=== PATIENT | male | born 1935 | race Caucasian/White ===

== ENCOUNTER 2019-02-16 22:01 | Inpatient (IN) ==
[2019-02-17] MEDS ORDERED: CLINDAMYCIN INJ 600 MG in PREMIX 1 EACH IV STA (01:40)
[2019-02-17 02:00] LABS: Basophils # 0.1 10*3/uL (0.0-0.2); Basophils % 0.5 % (0.0-0.8); Hematocrit 44.3 VOL% (42.0-52.0); Immature Granulocytes % 0.5 %; Immature Granulocytes Absolute 0.06 #; Lymphocytes % 15.6 % (21.2-54.2); Mean Corpuscular HGB Conc 31.6 GM/DL (32-36); Mean Corpuscular Volume 92.9 FL (87-102); Mean Platelet Volume 10.7 FL (9.6-12.0); Monocytes % 10.5 % (1.7-12.7); Neutrophils % 72.9 % (38.7-73.9); Platelet Count 191 T/CUMM (130-400); Red Blood Count 4.77 MC/CUMM (3.8-5.5); Red Cell Distribution Width 12.9 % (9.3-17.3); White Blood Count 12.8 T/CUMM (4-12)
[2019-02-17 02:19] LABS: Albumin 3.6 G/DL (3.4-5.0); Bilirubin,Total 0.4 MG/DL (0.2-1.0); Calcium 8.8 MG/DL (8.5-10.1); Osmolality,Calculated 285.1 MOS/KG (273-304); Total Protein 7.4 G/DL (6.4-8.3)
[2019-02-17] MEDS ORDERED: VANCOMYCIN INJ 1,000 MG in SODIUM CHLORIDE 0.9% 250 ML IV STA (03:51)
[2019-02-17] MEDS ORDERED: ONDANSETRON 4 MG/2 ML VIAL IV PRN (04:16)
[2019-02-17] MEDS ORDERED: TERBINAFINE 250 MG TABLET PO SCH (04:30)
[2019-02-17] MEDS: SODIUM CHLORIDE 0.9% 1,000 ML IV SCH ×2 (06:32→18:28)
[2019-02-17] MEDS: MORPHINE 4 MG/1 ML VIAL IV PRN ×2 (06:38→17:11)
[2019-02-17] MEDS: LEVOTHYROXINE 75 MCG TABLET PO SCH (08:31)
[2019-02-17] MEDS ORDERED: guaiFENesin/DM ER 600-30 MG TABLET PO PRN (09:22)
[2019-02-17] MEDS: FAMOTIDINE 20 MG TABLET PO SCH (09:36)
[2019-02-17] MEDS: ASPIRIN EC 81 MG TABLET PO SCH (09:36)
[2019-02-17] MEDS: CARBIDOPA/LEVODOPA 25-100 MG TABLET PO SCH ×4 (09:37→20:43)
[2019-02-17] MEDS: MONTELUKAST 10 MG TABLET PO SCH (09:37)
[2019-02-17] MEDS: ENTACAPONE 200 MG TABLET PO SCH ×3 (13:28→20:43)
[2019-02-17] MEDS: VANCOMYCIN INJ 1,250 MG in SODIUM CHLORIDE 0.9% 250 ML IV SCH (13:29)
[2019-02-18] MEDS: VANCOMYCIN INJ 1,250 MG in SODIUM CHLORIDE 0.9% 250 ML IV SCH ×2 (02:27→13:32)
[2019-02-18 05:16] LABS: Basophils # 0.1 10*3/uL (0.0-0.2); Basophils % 0.6 % (0.0-0.8); Hemoglobin 13.1 GM/DL (14.0-18.0); Immature Granulocytes % 0.4 %; Immature Granulocytes Absolute 0.04 #; Lymphocytes # 2.2 10*3/uL (1.4-4.0); Lymphocytes % 19.3 % (21.2-54.2); Mean Corpuscular HGB Conc 32.8 GM/DL (32-36); Mean Corpuscular Volume 91.5 FL (87-102); Monocytes % 9.5 % (1.7-12.7); Neutrophils % 70.2 % (38.7-73.9); Platelet Count 154 T/CUMM (130-400); Red Blood Count 4.37 MC/CUMM (3.8-5.5); Red Cell Distribution Width 12.6 % (9.3-17.3); White Blood Count 11.2 T/CUMM (4-12)
[2019-02-18] MEDS: SODIUM CHLORIDE 0.9% 1,000 ML IV SCH ×2 (05:27→12:31)
[2019-02-18 05:32] LABS: Calcium 8.2 MG/DL (8.5-10.1); Osmolality,Calculated 283.1 MOS/KG (273-304)
[2019-02-18] MEDS: LEVOTHYROXINE 75 MCG TABLET PO SCH (05:53)
[2019-02-18] MEDS: amLODIPine 5 MG TABLET PO SCH (08:00)
[2019-02-18] MEDS ORDERED: oxyCODONE/ACETAMINOPHEN 5-325 MG TABLET PO PRN (09:10)
[2019-02-18] MEDS ORDERED: MAGNESIUM HYDROXIDE SUSP 30 ML UDCUP PO PRN (09:10)
[2019-02-18] MEDS ORDERED: PROPOFOL 200 MG/20 ML VIAL IV ONE (09:19)
[2019-02-18] MEDS ORDERED: ONDANSETRON 4 MG/2 ML VIAL ONE ×2 (09:20→09:38)
[2019-02-18] MEDS ORDERED: fentaNYL 100 MCG/2 ML VIAL ONE (09:20)
[2019-02-18] MEDS ORDERED: SEVOFLURANE 1 UNIT/15 MINUTE INH ONE (09:20)
[2019-02-18] MEDS ORDERED: ONDANSETRON 4 MG/2 ML VIAL IV PRN (09:35)
[2019-02-18] MEDS ORDERED: HYDROmorphone 2 MG/1 ML VIAL ONE (09:38)
[2019-02-18] MEDS: HYDROmorphone 2 MG/1 ML VIAL IV PRN ×2 (09:43→09:54)
[2019-02-18] MEDS: CARBIDOPA/LEVODOPA 25-100 MG TABLET PO SCH ×4 (10:24→20:35)
[2019-02-18] MEDS: ENTACAPONE 200 MG TABLET PO SCH ×4 (10:24→20:35)
[2019-02-18] MEDS: ASPIRIN EC 81 MG TABLET PO SCH (10:24)
[2019-02-18] MEDS: MONTELUKAST 10 MG TABLET PO SCH (10:24)
[2019-02-18] MEDS: FAMOTIDINE 20 MG TABLET PO SCH (10:24)
[2019-02-18 16:40] LABS: HIV Antigen/Antibody Result Nonreactive (Nonreactive); Hepatitis B Surface Ag Quant < 0.10 Index; Hepatitis B Surface Ag Result Negative (Negative); Hepatitis C Virus Ab Quant < 0.02 Index; Hepatitis C Virus Ab Result Negative (Negative)
[2019-02-18] MEDS: oxyCODONE/ACETAMINOPHEN 5-325 MG TABLET PO PRN (20:34)
[2019-02-19] MEDS: VANCOMYCIN INJ 1,250 MG in SODIUM CHLORIDE 0.9% 250 ML IV SCH ×2 (02:27→13:26)
[2019-02-19] MEDS: LEVOTHYROXINE 75 MCG TABLET PO SCH (06:04)
[2019-02-19] MEDS: oxyCODONE/ACETAMINOPHEN 5-325 MG TABLET PO PRN ×2 (06:04→18:10)
[2019-02-19] MEDS: SODIUM CHLORIDE 0.9% 1,000 ML IV SCH ×2 (06:05→11:04)
[2019-02-19] MEDS: CARBIDOPA/LEVODOPA 25-100 MG TABLET PO SCH ×4 (09:16→21:54)
[2019-02-19] MEDS: ASPIRIN EC 81 MG TABLET PO SCH (09:16)
[2019-02-19] MEDS: FAMOTIDINE 20 MG TABLET PO SCH (09:16)
[2019-02-19] MEDS: MONTELUKAST 10 MG TABLET PO SCH (09:16)
[2019-02-19] MEDS: ENTACAPONE 200 MG TABLET PO SCH ×4 (09:17→21:53)
[2019-02-19] MEDS: amLODIPine 5 MG TABLET PO SCH (09:17)
[2019-02-19] MEDS: MORPHINE 4 MG/1 ML VIAL IV PRN (09:50)
[2019-02-19] MEDS: DOXYCYCLINE HYCLATE 100 MG CAPSULE PO SCH (21:53)
[2019-02-20] MEDS: VANCOMYCIN INJ 1,250 MG in SODIUM CHLORIDE 0.9% 250 ML IV SCH ×2 (01:40→14:55)
[2019-02-20] MEDS: oxyCODONE/ACETAMINOPHEN 5-325 MG TABLET PO PRN (05:31)
[2019-02-20] MEDS: LEVOTHYROXINE 75 MCG TABLET PO SCH (07:03)
[2019-02-20] MEDS: FAMOTIDINE 20 MG TABLET PO SCH (08:58)
[2019-02-20] MEDS: MONTELUKAST 10 MG TABLET PO SCH (08:58)
[2019-02-20] MEDS: ENTACAPONE 200 MG TABLET PO SCH ×4 (08:58→22:17)
[2019-02-20] MEDS: ASPIRIN EC 81 MG TABLET PO SCH (08:58)
[2019-02-20] MEDS: CARBIDOPA/LEVODOPA 25-100 MG TABLET PO SCH ×4 (08:58→22:16)
[2019-02-20] MEDS: amLODIPine 5 MG TABLET PO SCH (08:58)
[2019-02-20] MEDS: SODIUM CHLORIDE 0.9% 1,000 ML IV SCH ×3 (08:59→22:23)
[2019-02-20] MEDS: DOXYCYCLINE HYCLATE 100 MG CAPSULE PO SCH ×2 (08:59→22:16)
[2019-02-20] MEDS: MORPHINE 4 MG/1 ML VIAL IV PRN (17:28)
[2019-02-21] MEDS: SODIUM CHLORIDE 0.9% 1,000 ML IV SCH ×2 (01:01→09:30)
[2019-02-21] MEDS: VANCOMYCIN INJ 1,250 MG in SODIUM CHLORIDE 0.9% 250 ML IV SCH (01:03)
[2019-02-21] MEDS: LEVOTHYROXINE 75 MCG TABLET PO SCH (06:50)
[2019-02-21] MEDS: oxyCODONE/ACETAMINOPHEN 5-325 MG TABLET PO PRN (06:50)
[2019-02-21] MEDS: MONTELUKAST 10 MG TABLET PO SCH (09:27)
[2019-02-21] MEDS: ASPIRIN EC 81 MG TABLET PO SCH (09:28)
[2019-02-21] MEDS: FAMOTIDINE 20 MG TABLET PO SCH (09:28)
[2019-02-21] MEDS: ENTACAPONE 200 MG TABLET PO SCH ×2 (09:28→13:47)
[2019-02-21] MEDS: CARBIDOPA/LEVODOPA 25-100 MG TABLET PO SCH ×2 (09:28→13:47)
[2019-02-21] MEDS: DOXYCYCLINE HYCLATE 100 MG CAPSULE PO SCH (09:28)
[2019-02-21] MEDS: amLODIPine 5 MG TABLET PO SCH (09:28)
[2019-02-21 10:14] LABS: Calcium 8.4 MG/DL (8.5-10.1)
[2019-02-21 11:20] VITALS: BP 125/54
== END 2019-02-21 13:20 | disposition home or self-care (01) | DRG 580 ==
LOC: N.ED 22:01 → N.EDINP 02-17 04:16 → SUATTDRO 02-17 04:16 → N.3E 02-17 04:28
PROVIDERS: ADMIT Family Medicine; ATTEND Hospitalist

== ENCOUNTER 2019-09-30 06:00 | Observation (INO) ==
[2019-09-30 06:46] LABS: Basophils # 0.1 10*3/uL (0.0-0.2); Basophils % 0.8 % (0.0-0.8); Eosinophils % 0.1 % (0.00-10.9); Hematocrit 45.8 VOL% (42.0-52.0); Hemoglobin 14.7 GM/DL (14.0-18.0); Immature Granulocytes % 0.2 %; Immature Granulocytes Absolute 0.02 #; Lymphocytes # 1.9 10*3/uL (1.4-4.0); Lymphocytes % 18.5 % (21.2-54.2); Mean Corpuscular HGB Conc 32.1 GM/DL (32-36); Mean Corpuscular Volume 93.3 FL (87-102); Mean Platelet Volume 10.9 FL (9.6-12.0); Monocytes % 9.9 % (1.7-12.7); Neutrophils % 70.5 % (38.7-73.9); Platelet Count 181 T/CUMM (130-400); Red Blood Count 4.91 MC/CUMM (3.8-5.5); Red Cell Distribution Width 12.8 % (9.3-17.3); White Blood Count 10.1 T/CUMM (4-12)
[2019-09-30 07:04] LABS: Calcium 9.1 MG/DL (8.5-10.1); Osmolality,Calculated 279.5 MOS/KG (273-304)
[2019-09-30] MEDS ORDERED: HYDROmorphone 2 MG/1 ML VIAL IV STA (07:16)
[2019-09-30] MEDS ORDERED: ONDANSETRON 4 MG/2 ML VIAL IV STA (07:16)
[2019-09-30] MEDS ORDERED: VANCOMYCIN INJ 1,000 MG in SODIUM CHLORIDE 0.9% 250 ML IV STA (07:16)
[2019-09-30] MEDS ORDERED: ONDANSETRON 4 MG/2 ML VIAL IV PRN (08:17)
[2019-09-30] MEDS ORDERED: DEXTROSE 50% 25 GM/50 ML VIAL IV PRN (08:17)
[2019-09-30] MEDS ORDERED: ACETAMINOPHEN 325 MG TABLET PO PRN (08:17)
[2019-09-30] MEDS ORDERED: GLUCAGON 1 MG VIAL IM PRN (08:17)
[2019-09-30] MEDS: VANCOMYCIN INJ 1,250 MG in SODIUM CHLORIDE 0.9% 250 ML IV SCH (20:50)
[2019-10-01 05:37] LABS: Basophils # 0.1 10*3/uL (0.0-0.2); Eosinophils % 0.1 % (0.00-10.9); Hematocrit 43.2 VOL% (42.0-52.0); Hemoglobin 14.4 GM/DL (14.0-18.0); Immature Granulocytes % 0.1 %; Immature Granulocytes Absolute 0.01 #; Lymphocytes # 2.1 10*3/uL (1.4-4.0); Lymphocytes % 22.4 % (21.2-54.2); Mean Corpuscular HGB Conc 33.3 GM/DL (32-36); Mean Corpuscular Volume 91.3 FL (87-102); Mean Platelet Volume 11.6 FL (9.6-12.0); Monocytes % 9.5 % (1.7-12.7); Neutrophils % 66.9 % (38.7-73.9); Platelet Count 166 T/CUMM (130-400); Red Blood Count 4.73 MC/CUMM (3.8-5.5); Red Cell Distribution Width 12.7 % (9.3-17.3); White Blood Count 9.4 T/CUMM (4-12)
[2019-10-01 05:52] LABS: Calcium 8.3 MG/DL (8.5-10.1); Osmolality,Calculated 278.5 MOS/KG (273-304)
[2019-10-01] MEDS: VANCOMYCIN INJ 1,250 MG in SODIUM CHLORIDE 0.9% 250 ML IV SCH (13:50)
[2019-10-01] MEDS ORDERED: SODIUM CHLORIDE 0.65% NASAL SPRAY 45 ML BOTTLE BOTH NARES PRN (16:59)
[2019-10-02 05:01] LABS: Basophils # 0.1 10*3/uL (0.0-0.2); Basophils % 0.8 % (0.0-0.8); Hematocrit 43.3 VOL% (42.0-52.0); Hemoglobin 14.1 GM/DL (14.0-18.0); Immature Granulocytes % 0.3 %; Immature Granulocytes Absolute 0.02 #; Lymphocytes # 2.1 10*3/uL (1.4-4.0); Lymphocytes % 26.4 % (21.2-54.2); Mean Corpuscular HGB Conc 32.6 GM/DL (32-36); Mean Corpuscular Volume 92.3 FL (87-102); Mean Platelet Volume 11.1 FL (9.6-12.0); Monocytes % 8.9 % (1.7-12.7); Neutrophils % 63.6 % (38.7-73.9); Platelet Count 168 T/CUMM (130-400); Red Blood Count 4.69 MC/CUMM (3.8-5.5); Red Cell Distribution Width 12.6 % (9.3-17.3); White Blood Count 7.9 T/CUMM (4-12)
[2019-10-02 05:23] LABS: Calcium 8.3 MG/DL (8.5-10.1); Osmolality,Calculated 281.4 MOS/KG (273-304)
[2019-10-02] MEDS: VANCOMYCIN INJ 1,250 MG in SODIUM CHLORIDE 0.9% 250 ML IV SCH (09:10)
[2019-10-02] MEDS ORDERED: FAMOTIDINE 20 MG/2 ML VIAL IV ONE (09:48)
[2019-10-02] MEDS ORDERED: LACTATED RINGERS 1,000 ML IV SCH (10:00)
[2019-10-02] MEDS ORDERED: propofoL 200 MG/20 ML VIAL IV ONE (13:01)
[2019-10-02] MEDS ORDERED: SEVOFLURANE 1 UNIT/15 MINUTE INH ONE (13:01)
[2019-10-02] MEDS ORDERED: LIDOCAINE 2% 5 ML VIAL ONE (13:01)
[2019-10-02] MEDS ORDERED: fentaNYL 100 MCG/2 ML VIAL ONE (13:01)
[2019-10-02] MEDS ORDERED: ETOMIDATE 40 MG/20 ML VIAL IV ONE (13:02)
[2019-10-02] MEDS ORDERED: ePHEDrine 50 MG/ML AMP ONE (13:02)
[2019-10-02] MEDS ORDERED: ONDANSETRON 4 MG/2 ML VIAL ONE (13:02)
[2019-10-02] MEDS ORDERED: LACTATED RINGERS 1,000 ML IV ONE (13:02)
[2019-10-02] MEDS: SULFAMETHOX/TRIMETHOPRIM 800-160 MG TABLET PO SCH (20:49)
[2019-10-03] MEDS: VANCOMYCIN INJ 1,250 MG in SODIUM CHLORIDE 0.9% 250 ML IV SCH (01:55)
[2019-10-03 05:42] LABS: Basophils # 0.1 10*3/uL (0.0-0.2); Basophils % 0.8 % (0.0-0.8); Hematocrit 42.9 VOL% (42.0-52.0); Immature Granulocytes % 0.2 %; Immature Granulocytes Absolute 0.02 #; Lymphocytes # 1.7 10*3/uL (1.4-4.0); Lymphocytes % 17.7 % (21.2-54.2); Mean Corpuscular HGB Conc 32.6 GM/DL (32-36); Mean Corpuscular Volume 90.7 FL (87-102); Mean Platelet Volume 11.2 FL (9.6-12.0); Monocytes % 9.8 % (1.7-12.7); Neutrophils % 71.5 % (38.7-73.9); Platelet Count 177 T/CUMM (130-400); Red Blood Count 4.73 MC/CUMM (3.8-5.5); Red Cell Distribution Width 12.7 % (9.3-17.3); White Blood Count 9.8 T/CUMM (4-12)
[2019-10-03 06:03] LABS: Calcium 8.3 MG/DL (8.5-10.1); Osmolality,Calculated 282.3 MOS/KG (273-304)
[2019-10-03] MEDS: SULFAMETHOX/TRIMETHOPRIM 800-160 MG TABLET PO SCH (09:55)
[2019-10-03 11:49] VITALS: BP 149/71
== END 2019-10-03 12:45 | disposition home or self-care (01) ==
LOC: N.ED 06:00 → INTOOBSV 08:17 → N.EDINP 08:17 → SUATTDRO 08:17 → N.3E 09:53
PROVIDERS: ADMIT Internal Medicine Geriatric Medicine; ATTEND Family Medicine

== ENCOUNTER 2020-06-14 16:49 | Observation (INO) ==
[2020-06-14] MEDS ORDERED: ASPIRIN 325 MG TABLET PO STA (17:24)
[2020-06-14] MEDS ORDERED: NITROGLYCERIN SL 0.4 MG TABLET SL PRN (17:24)
[2020-06-14 17:29] LABS: Basophils # 0.1 10*3/uL (0.0-0.2); Basophils % 0.8 % (0.0-0.8); Hematocrit 43.5 VOL% (42.0-52.0); Hemoglobin 14.4 GM/DL (14.0-18.0); Immature Granulocytes % 0.1 %; Immature Granulocytes Absolute 0.01 #; Lymphocytes # 1.6 10*3/uL (1.4-4.0); Lymphocytes % 19.1 % (21.2-54.2); Mean Corpuscular HGB Conc 33.1 GM/DL (32-36); Mean Corpuscular Volume 89.5 FL (87-102); Mean Platelet Volume 10.7 FL (9.6-12.0); Monocytes % 9.1 % (1.7-12.7); Neutrophils % 70.9 % (38.7-73.9); Platelet Count 180 T/CUMM (130-400); Red Blood Count 4.86 MC/CUMM (3.8-5.5); Red Cell Distribution Width 12.9 % (9.3-17.3); White Blood Count 8.4 T/CUMM (4-12)
[2020-06-14 17:41] LABS: INR 0.9; PT Patient Result 9.9 SECS (9.8-11.9)
[2020-06-14 18:14] LABS: Albumin 3.7 G/DL (3.4-5.0); Bilirubin,Total 0.4 MG/DL (0.2-1.0); Calcium 8.3 MG/DL (8.5-10.1); Osmolality,Calculated 276.5 MOS/KG (273-304); Total Protein 7.1 G/DL (6.4-8.3)
[2020-06-14] MEDS ORDERED: ZALEPLON 5 MG CAPSULE PO PRN (18:55)
[2020-06-14] MEDS ORDERED: ONDANSETRON 4 MG/2 ML VIAL IV PRN (18:55)
[2020-06-14] MEDS ORDERED: MORPHINE 4 MG/1 ML VIAL IV PRN (18:55)
[2020-06-14] MEDS ORDERED: DOCUSATE SODIUM 100 MG CAPSULE PO PRN (18:55)
[2020-06-14] MEDS ORDERED: ALUMINUM/MAGNES/SIMETH MAX STR 30 ML UDCUP PO PRN (18:55)
[2020-06-14] MEDS ORDERED: GLUCAGON 1 MG VIAL IM PRN (18:55)
[2020-06-14] MEDS ORDERED: DEXTROSE 50% 25 GM/50 ML VIAL IV PRN (18:55)
[2020-06-14 19:21] LABS: Risk Ratio 4.61
[2020-06-14] MEDS: SODIUM CHLORIDE 0.45% 1,000 ML IV SCH (22:39)
[2020-06-14] MEDS: ENOXAPARIN 40 MG/0.4 ML SYRINGE SUBCUT SCH (22:39)
[2020-06-15 01:26] LABS: Basophils # 0.1 10*3/uL (0.0-0.2); Basophils % 1.1 % (0.0-0.8); Eosinophils # 0.2 10*3/uL (0.0-0.87); Hemoglobin 13.8 GM/DL (14.0-18.0); Immature Granulocytes % 0.4 %; Immature Granulocytes Absolute 0.03 #; Lymphocytes # 1.8 10*3/uL (1.4-4.0); Lymphocytes % 21.4 % (21.2-54.2); Mean Corpuscular HGB Conc 33.7 GM/DL (32-36); Mean Corpuscular Volume 87.8 FL (87-102); Mean Platelet Volume 10.8 FL (9.6-12.0); Monocytes % 9.7 % (1.7-12.7); Neutrophils % 65.4 % (38.7-73.9); Platelet Count 175 T/CUMM (130-400); Red Blood Count 4.67 MC/CUMM (3.8-5.5); White Blood Count 8.5 T/CUMM (4-12)
[2020-06-15 01:42] LABS: Albumin 3.3 G/DL (3.4-5.0); Bilirubin,Total 0.7 MG/DL (0.2-1.0); Calcium 8.4 MG/DL (8.5-10.1); Osmolality,Calculated 280.4 MOS/KG (273-304); Thyroid Stimulating Hormone 1.1 uIU/ml (0.358-3.74); Total Protein 6.5 G/DL (6.4-8.3)
[2020-06-15 06:54] LABS: Troponin I < 0.015 NG/ML (0.00-0.045)
[2020-06-15] MEDS: LEVOTHYROXINE 100 MCG TABLET PO SCH (07:00)
[2020-06-15] MEDS: ASPIRIN EC 81 MG TABLET PO SCH (08:53)
[2020-06-15] MEDS: PANTOPRAZOLE 40 MG TABLET PO SCH (08:53)
[2020-06-15] MEDS: CARBIDOPA/LEVODOPA 25-100 MG TABLET PO SCH ×4 (08:53→21:23)
[2020-06-15] MEDS: amLODIPine 5 MG TABLET PO SCH (08:53)
[2020-06-15] MEDS: ACETAMINOPHEN 325 MG TABLET PO PRN ×2 (08:54→17:26)
[2020-06-15] MEDS: SODIUM CHLORIDE 0.45% 1,000 ML IV SCH (08:55)
[2020-06-15 10:52] LABS: Troponin I < 0.015 NG/ML (0.00-0.045)
[2020-06-15] MEDS: POTASSIUM CHLORIDE 20 MEQ TABLET PO PRN ×3 (13:38→17:39)
[2020-06-15] MEDS ORDERED: MONTELUKAST 10 MG TABLET PO SCH (21:00)
[2020-06-15] MEDS: ENOXAPARIN 40 MG/0.4 ML SYRINGE SUBCUT SCH (21:24)
[2020-06-16] MEDS: LEVOTHYROXINE 100 MCG TABLET PO SCH (05:26)
[2020-06-16] MEDS ORDERED: LEVOTHYROXINE 75 MCG TABLET PO SCH (06:30)
[2020-06-16] MEDS: ASPIRIN EC 81 MG TABLET PO SCH (08:36)
[2020-06-16] MEDS: amLODIPine 5 MG TABLET PO SCH (08:36)
[2020-06-16] MEDS: CARBIDOPA/LEVODOPA 25-100 MG TABLET PO SCH (08:36)
[2020-06-16] MEDS: PANTOPRAZOLE 40 MG TABLET PO SCH (08:36)
[2020-06-16 12:11] VITALS: BP 119/58
== END 2020-06-16 12:27 | disposition home or self-care (01) ==
LOC: N.ED 16:49 → N.EDINP 16:49 → SUATTDRO 18:55 → N.EDINP 20:38 → N.TELEN 22:19
PROVIDERS: ADMIT Phlebology; ATTEND Internal Medicine